=== PATIENT | male | born 1960 | race Two or more races ===

== ENCOUNTER 2018-10-20 09:23 | Day surgery (SDC) | payer MEDICAID ==
[~2018-10-20] VITALS: Ht 179.1 cm; Wt 104.3 kg
[~2018-10-20 09:23] MED LIST: ALLO300T2 PO; CARV12.544 PO; CHLO25TA22 PO; CLON0.2T PO; DIGO0.2570 PO; FENO1TAB42 PO; ISOS1TAB37 PO; LISI-646 PO; POTA-220 PO; TAM04C PO
[2018-10-20] MEDS ORDERED: LIDOCAINE 2%HCL (LOCAL ANESTH.) INJ 20ML MDV ONE (09:56)
[2018-10-20] MEDS ORDERED: VANCOMYCIN 1GM/250ML 250 ML IV ONE ×2 (09:58→09:59)
[2018-10-20] MEDS ORDERED: MIDAZOLAM HCL 1MG/1ML-2 ML VIAL ONE (10:22)
[2018-10-20] MEDS ORDERED: fentaNYL CITRATE 100 MCG/2 ML VL ONE (10:22)
[2018-10-20] MEDS ORDERED: VANCOMYCIN HCL 1000 MG VL ONE (10:57)
== END 2018-10-20 14:15 | disposition home or self-care (01) ==
LOC: CATH 09:23
PROVIDERS: ATTEND Internal Medicine Cardiovascular Disease
DX: Z45.02 Encounter for adjustment and management of automatic implantable cardiac defibrillator (principal); I13.0 Hypertensive heart and chronic kidney disease with heart failure and stage 1 through stage 4 chronic kidney disease, or unspecified chronic kidney disease; I50.9 Heart failure, unspecified; N18.3 Chronic kidney disease, stage 3 (moderate); I73.89 Other specified peripheral vascular diseases; E78.5 Hyperlipidemia, unspecified; Z79.899 Other long term (current) drug therapy; Z88.0 Allergy status to penicillin; Z88.1 Allergy status to other antibiotic agents; Z98.890 Other specified postprocedural states
CPT/HCPCS: 33241; 33244; 33249; C1721; J2250; J3010; J3370; J7030; 93641; 99152; 99153

== ENCOUNTER 2024-03-17 12:55 | Emergency (ER) | payer MEDICAID ==
[~2024-03-17] VITALS: Ht 177.8 cm; Wt 107.0 kg
[~2024-03-17 12:55] MED LIST changes: +CHLO25TA2 PO; -CHLO25TA22 PO; +FENO145T27 PO; -FENO1TAB42 PO; -LISI-646 PO; +LISI20TA56 PO; -TAM04C PO; +TAMS-35 PO
[2024-03-17 14:54] VITALS: PULSE 81; RESP 17; TEMP 97.9; O2SAT 96
--- NOTE | 2024-03-17 15:04 | ED.PDOC ---
Eye-HPI HPI Comments A 64 YEAR OLD MALE PRESENTS TO THE ED WITH COMPLAINT OF SORE THROAT [id number]. PT STATES HE IS ABLE TO EAT AND DRINK WELL. PT C/O THROAT PAIN WHEN EATS AND DRINKS. ALSO, PT'S BLOOD PRESSURE IS HIGH BECAUSE HE DID NOT TAKE HIS BLOOD PRESSURE MEDICATION TODAY. PATIENT DENIES FEVER, CHILLS, SHORTNESS OF BREATH, CHEST PAIN, ABDOMINAL PAIN, NAUSEA, VOMITING, WEIGHT LOSS, HEADACHE, OR OTHER COMPLAINTS. NO OTHER SYMPTOMS OR MODIFYING FACTORS AT THIS TIME. PATIENT IS ALERT, ORIENTED X 4, AND HAS STEADY GAIT. Chief Complaint: Sore Throat Time Seen by MD: 14:50 Reviewed Notes: Nurses Notes, Medications, Allergies Allergies: Coded Allergies: Penicillins (Unverified Allergy, Unknown, 10/19/18) Home Meds Active Scripts Lidocaine HCl (Mouth-Throat) (Lidocaine HCl Viscous) 2 % Eufemia, 10 ML MT TID, #100 ML Prov:RIVER GONZALEZ 03/17/24 Azithromycin (Azithromycin) 500 Mg Tab, 1 TAB PO DAILY, #5 TAB Prov:RIVER GONZALEZ 03/17/24 Reported Medications Fenofibrate (FENOFIBRATE) 145 Mg Tab, 1 TAB PO DAILY, #30 TAB 5 Refills 10/19/18 Clonidine Hydrochloride (Clonidine Hcl) 0.2 Mg Tab, 1 TAB PO BID, #60 TAB 5 Refills 10/19/18 Tamsulosin Hcl (Flomax) 0.4 Mg Cap, 1 CAP PO DAILY, #30 CAP 11 Refills 10/19/18 Chlorthalidone (Chlorthalidone) 25 Mg Tab, 25 MG PO DAILY, TAB 10/19/18 Potassium Chloride (Klor-Con M20) 20 Meq Tab, 1 TAB PO DAILY 01/01/13 Lisinopril (Lisinopril) 20 Mg Tab, 0.5 TAB PO DAILY 01/01/13 Isosorbide Dinitrate (Isosorbide Dinitrate) 30 Mg Tab, 1 TAB PO DAILY 01/01/13 Digoxin (Digoxin) 0.25 Mg Tab, 0.5 TAB PO DAILY 01/01/13 Carvedilol (Carvedilol) 12.5 Mg Tab, 1 TAB PO TWICE DAILY 01/01/13 Allopurinol (Allopurinol) 300 Mg Tab, 1 TAB PO DAILY 01/01/13 Information Source: Patient Mode of Arrival: Ambulatory Timing: Weeks Duration: Since onset Prehospital treatment: None Quality: Pain, Red Lids: Normal Conjunctiva: Normal Cornea: Normal Pupils: Normal EOM: Normal Fundus: Normal Slit lamp exam: Normal Anterior chamber: Normal Mouth Location: Pharynx Mouth: Normal Nose: Normal Sinuses: Normal Oropharynx: Red Onset: Spontaneous Throat Exposed to: None History of: None Last Tetanus: UTD Modifying factors: Nothing Associated signs and symptoms: Sore Throat Past Medical History PAST MEDICAL HISTORY: HTN Surgical History: CABG, Pacemaker Family History Family History: Unknown Social History Smoker: Non-Smoker Alcohol: Denies ETOH Use Drugs: Denies Drug Use Lives In: Home Constitutional: denies: chills, diaphoresis, fatigue, fever, malaise, sweats, weakness, others EENTM: reports: throat pain, throat swelling; denies: blurred vision, double vision, ear bleeding, ear discharge, ear drainage, ear pain, ear ringing, eye pain, eye redness, hearing loss, mouth pain, mouth swelling, nasal discharge, nose bleeding, nose congestion, nose pain, photophobia, tearing, voice changes, others Respiratory: denies: cough, hemoptysis, orthopnea, SOB at rest, shortness of breath, SOB with excertion, stridor, wheezing, others Cardiovascular: denies: chest pain, dizzy spells, diaphoresis, Dyspnea on exertion, edema, irregular heart beat, left arm pain, lightheadedness, palpitations, PND, syncope, others Gastrointestinal: denies: abdomen distended, abdominal pain, blood streaked bowels, constipated, diarrhea, dysphagia, difficulty swallowing, hematemesis, melena, nausea, poor appetite, poor fluid intake, rectal bleeding, rectal pain, vomiting, others Genitourinary: denies: burning, dysuria, flank pain, frequency, hematuria, incontinence, penile discharge, penile sore, pain, testicle pain, testicle swelling, urgency, others Neurological: denies: dizziness, fainting, headache, left sided numbness, left sided weakness, numbness, paresthesia, pre-existing deficit, right sided numbness, right sided weakness, seizure, speech problems, tingling, tremors, weakness, others Musculoskeletal: denies: back pain, gout, joint pain, joint swelling, muscle pain, muscle stiffness, neck pain, others Integumetry: denies: bruises, change in color, change in hair/nails, dryness, laceration, lesions, lumps, rash, wounds, others Allergic/Immunocompromised: denies: Difficulty Healing, Frequent Infections, Hives, Itching, others Hematologic/Lymphatic: denies: anemia, blood clots, easy bleeding, easy bruising, swollen glands, others Endocrine: denies: excessive hunger, excessive sweating, excessive thirst, excessive urination, flushing, intolerance to cold, intolerance to heat, unexplained weight gain, unexplained weight loss, others Psychiatric: denies: anxiety, bipolar disorder, depression, hopeless, panic disorder, schizophrenia, sleepless, suicidal, others All Other Systems: Reviewed and Negative Physical Exam General Appearance: No Apparent Distress, Normal HEENT: PERRL/EOMI, Pharyngeal Erythema (SWELLING PHARYNX WITH VESICLE SPOTS, NO EXUDATES. REDNESS AND SWELLING UVULA. ), TMs Normal Neck: Full Range of Motion, Non-Tender, Normal, Normal Inspection Respiratory: Chest Non-Tender, Lungs Clear, No Accessory Muscle Use, No Res piratory Distress, Normal Breath Sounds Cardiovascular: No Edema, No JVD, No Murmur, No Gallop, Normal Peripheral Pulses, Regular Rate/Rhythm Breast Exam: Deferred Gastrointestinal: No Organomegaly, Non Tender, No Pulsatile Mass, Normal Bowel Sounds, Soft Genitalia: Deferred Pelvic: Deferred Rectal: Deferred Extremities: No calf tenderness, Normal capillary refill, Normal inspection, Normal range of motion, Non-tender, No pedal edema Musculoskeletal : Apperance: Normal Neurologic: Alert, composition teacher II-XII nml as Tested, No Motor Deficits, Normal Affect, Normal Mood, No Sensory Deficits Cerebellar Function: Normal Reflexes: Normal Skin: Dry, Normal Color, Warm Peripheral Pulses: 2+ carotid (R), 2+ carotid (L) Lymphatic: No Adenopathy Was a procedure done? Was a procedure done?: No EENT DIFF Eye: N/A Ear: Otitis Media, Pharyngitis, N/A Nose: N/A Mouth: N/A Sore Throat: Epiglottitis, Pharyngitis, Viral Pharyngitis, URI X-Ray, Labs, Meds, VS Vital Signs Date Time Temp Pulse Resp B/P (MAP) Pulse Ox O2 Delivery O2 Flow Rate FiO2 03/17/24 16:08 75 16 170/93 (118) 96 03/17/24 15:05 188/96 03/17/24 14:54 81 17 96 Room Air* 0 21 03/17/24 14:54 97.9 75 17 188/96 (126) 96 97.9 03/17/24 14:14 97.9 81 17 184/93 (123) 96 Current Medications Medications (Trade) Dose Ordered Sig/Ryan Route Start Time Stop Time Status Last Admin Ceftriaxone Sodium (Rocephin) 1,000 mg ONCE ONCE IM 03/17/24 15:00 03/17/24 15:01 DC 03/17/24 15:05 Clonidine HCl (Catapres Tablet) 0.2 mg ONCE ONCE PO 03/17/24 15:00 03/17/24 15:01 DC 03/17/24 15:05 X-Ray, Labs, Meds, VS Comment COURSE: EXTERNAL MEDICAL RECORDS REVIEWED: [NONE] INDEPENDENT HISTORIANS: [NONE] SOCIAL DETERMINANTS OF HEALTH: [NONE] LABS ORDERED: NONE REVIEWED AND INTERPRETED RESULTS: NONE IMAGING ORDERED: NONE TREATMENTS ORDERED: CLONIDINE 0.2MG, [id number] 1000MG IM PROCEDURES PERFORMED: NONE CRITICAL CARE TIME: NONE I HAVE DISCUSSED THE PATIENT WITH THE ATTENDING PHYSICIAN DR. VALERIE RADFORD AND SHE AGREES WITH THE PATIENT'S PLAN OF CARE AND DISPOSITION. GIVEN THE HISTORY AND PRESENT ILLNESS OF THE PATIENT, AFTER REVIEWING LABS, IMAGING, AND COURSE OF TREATMENT ADMINISTERED DURING THEIR ED VISIT, THERE IS LOW SUSPICION FOR RED FLAG FINDINGS. BASED ON HISTORY OF PRESENT ILLNESS, AND PHYSICAL EXAM, PATIENT WILL BE DISCHARGED HOME. DISCUSSED PLAN FOR DISCHARGE HOME WITH RX. MEDICATION WARNINGS GIVEN. SHARED DECISION MAKING: DISCUSSED WITH PATIENT THAT THEIR WORKUP WAS NORMAL. PATIENT INSTRUCTED TO FOLLOW UP WITH PRIMARY CARE PROVIDER IN 1-2 DAYS FOR RE- EVALUATION OF SYMPTOMS. PATIENT VERBALIZES UNDERSTANDING TO RETURN TO ED FOR NEW OR WORSENING SYMPTOMS OR IF FOLLOW UP WITH PCP CANNOT BE OBTAINED. PATIENT FEELS COMFORTABLE GOING HOME AT THIS TIME. ALL QUESTIONS ADDRESSED AT TIME OF DISCHARGE. Time of 1ST Reevaluation: 16:10 Reevaluation 1ST: Improved Patient Education/Counseling: Diagnosis, Treatment, Need For Follow Up Family Education/Counseling: Diagnosis, Treatment, No Family Present Medical Screening: No EMC Exist At This Time Departure 1 Departure Time of Disposition: 16:10 Impression: Primary Impression: Acute pharyngitis Qualified Codes: J02.9 - Acute pharyngitis, unspecified Additional Impressions: Uvulitis HTN (hypertension) Qualified Codes: I10 - Essential (primary) hypertension Noncompliance Disposition: 01 HOME / SELF CARE / HOMELESS Condition: Stable Additional Instructions: FOLLOW-UP WITH PCP IN 1 TO 2 DAYS. TAKE MEDICATIONS PRESCRIBED. RETURN TO ED FOR ANY NEW OR WORSENING SYMPTOMS. e-Prescriptions Lidocaine HCl (Mouth-Throat) (Lidocaine HCl Viscous) 2 % Eufemia 10 ML MT TID, #100 ML Prov: RIVER GONZALEZ 03/17/24 Azithromycin (Azithromycin) 500 Mg Tab 1 TAB PO DAILY, #5 TAB Prov: RIVER GONZALEZ 03/17/24 Discharged With: Self Critical Care Note Critical Care Time?: No Stability Stability form required: No Heart Score Heart Score: Heart Score Response (Comments) Value History N/A 0 EKG N/A 0 Age N/A 0 Risk Factors N/A 0 Troponin N/A 0 Total 0 I personally scribed for RIVER GONZALEZ ([email or web address]) on 03/17/24 at 15:04. Electronically submitted by Rosanna Clark ([email or web address]). RIVER GONZALEZ Mar 17, 2024 15:04
[2024-03-17] MEDS: cefTRIAXone SOD 1,000 MG VL IM ONE (15:05)
[2024-03-17] MEDS: cloNIDine HCL 0.1 MG TAB PO ONE (15:05)
[2024-03-17 16:08] VITALS: BP 170/93; PULSE 75; RESP 16; O2SAT 96
[2024-03-17] MEDS ORDERED: AZIT500T66 PO (16:10)
[2024-03-17] MEDS ORDERED: LIDO2SOL26 MT (16:10)
== END 2024-03-17 16:15 | disposition home or self-care (01) ==
LOC: ER 12:55
DX: K12.2 Cellulitis and abscess of mouth (principal); I10 Essential (primary) hypertension; J02.9 Acute pharyngitis, unspecified; Z79.899 Other long term (current) drug therapy; Z88.0 Allergy status to penicillin; Z95.0 Presence of cardiac pacemaker; Z95.1 Presence of aortocoronary bypass graft; Z91.199 Patient's noncompliance with other medical treatment and regimen due to unspecified reason
CPT/HCPCS: 96372; 99283; J0696